=== PATIENT | female | born 1940 | race Caucasian/White ===

== ENCOUNTER → 2016-09-26 | Outpatient (CLI) | payer OTHER ==
[~2016-09-26] MED LIST: CHOL400C7 PO; COEN100C7 PO; IBUP-1277 PO; METH500T3 PO; METO25TA3 PO; MULT-506 PO; OMEG10007 PO; VITA100C2 PO; VITA100C4 PO; ZNTT/150 PO; calcium chews PO; citrucel PO
[2016-09-26 11:33] LABS: ESTIMATED AVERAGE GLUCOSE 114 mg/dl; HA1C FLAG Normal (Normal)
[2016-09-26 11:45] LABS: BLOOD UREA NITROGEN 12 mg/dl (7-18); BUN/CREATININE RATIO 13.2 (10-20); CARBON DIOXIDE 29 mmol/L (21-32); CHLORIDE 109 mmol/L (98-107); CREATININE 0.94 mg/dl (0.60-1.20); GLUCOSE 97 mg/dl (70-99); POTASSIUM 3.8 mmol/L (3.5-5.1); SODIUM 144 mmol/L (136-145)
[2016-09-26 11:48] LABS: ALB/GLOB RATIO 1.3 (0.9-2); ALKALINE PHOSPHATASE 51 U/L (45-117); ALT/SGPT 33 U/L (12-78); AST/SGOT 23 U/L (15-37); CHOLESTEROL 239 mg/dl (0-200); CHOLESTEROL/HDL RATIO 2.2; HDL CHOLESTEROL 107 mg/dl; LDL CHOLESTEROL CALCULATED 119 mg/dl; TRIGLYCERIDES 63 mg/dl (0-150); VERY LOW DENSITY LIPOPROT CALC 13 mg/dl
== END | disposition home or self-care (01) ==
LOC: C.LABBC 08:23
PROVIDERS: ATTEND Internal Medicine Cardiovascular Disease
DX: E78.5 Hyperlipidemia, unspecified (principal); M81.0 Age-related osteoporosis without current pathological fracture; I10 Essential (primary) hypertension; R73.01 Impaired fasting glucose

== ENCOUNTER → 2016-11-11 | Outpatient (CLI) | payer OTHER ==
[2016-11-11 15:25] LABS: LYME DISEASE AB IGG NEG (NEG)
[2016-11-11 15:26] LABS: LYME DISEASE AB IGM NEG (NEG)
[2016-11-14 16:46] LABS: ANAPLASMA PHAGOCYTOPHIL IGG <1:64 (<1:64); ANAPLASMA PHAGOCYTOPHIL IGM <1:20 (<1:20)
== END | disposition home or self-care (01) ==
LOC: C.LABBC 11:28
PROVIDERS: ATTEND Nurse Practitioner Adult Health
DX: M25.561 Pain in right knee (principal); M25.562 Pain in left knee

== ENCOUNTER 2017-01-25 20:45 | Emergency (ER) | payer OTHER ==
[~2017-01-25] VITALS: Ht 152.4 cm; Wt 57.7 kg
[~2017-01-25 20:45] MED LIST changes: -CHOL400C7 PO; -COEN100C7 PO; -IBUP-1277 PO; -METH500T3 PO; -MULT-506 PO; -OMEG10007 PO; -VITA100C2 PO; -ZNTT/150 PO
[2017-01-25 20:47] VITALS: TEMP 36.6; Ht 152.4 cm; Wt 57.7 kg
--- NOTE | 2017-01-25 21:03 | EMERGENCY ROOM VISIT NOTE ---
History First contact with patient: 20:51 Chief Complaint: LEG PAIN,LEG INJURY Stated Complaint: SWOLLEN RIGHT LEG-SENT FROM [employer] History of Present Illness The patient is a 76 year old female who presents to the Emergency Room for evaluation of right leg swelling. The patient states that she injured her right leg 3 months ago. She has been seeing orthopedics for a torn ligament in her knee. She wears a brace at home. She states that recently, she was walking without her brace and feels that she may have possibly reinjured the leg. She has had swelling in the leg since yesterday. She went to [facility] prior to arrival and was sent here for further evaluation. She has a dull pain in the leg which she rates a 3/10. She denies any history or family history of blood clots. She denies any recent long travel. She does not smoke. Review of Systems A complete 10 point review of systems was reviewed with the patient with pertinent positives and negatives as per history of present illness. All else were negative. Past Medical/Surgical History Medical Problems: (1) ACQRD ABSENCE OF GENITAL ORGANS (2) ASTHMA, UNSPECIFIED Social History Smoking Status: Never Smoker Alcohol Use: occasionally Marital Status: Current/Historical Medications Scheduled Cholecalciferol (Vitamin D 400 Iu), 400 INTER.UNIT PO DAILY Coenzyme Q10 (Ubidecarenone) (Coq10), Unknown Dose PO DAILY Fish Oil ([place]-3), 1 CAP PO DAILY Methylcellulose (Laxative) (Citrucel), 2 TABS PO BID Multivitamin (Multivitamin), 1 TAB PO DAILY Vitamin E (Vitamin E 100 Iu), 100 INTER.UNIT PO DAILY Scheduled PRN Ibuprofen (Advil), 200 MG PO UD PRN for Pain Physical Exam Vital Signs Date Time Temp Pulse Resp B/P (MAP) Pulse Ox O2 Delivery O2 Flow Rate FiO2 01/25/17 22:21 77 18 149/95 99 Room Air 01/25/17 20:47 36.6 79 16 169/88 97 Room Air Physical Exam VITALS: Vitals are noted on the nurse's note and reviewed by myself. Vital signs stable. GENERAL: This is a 76-year-old female, in no acute distress, nondiaphoretic, well-developed well-nourished. HEART: Regular rate and rhythm without murmurs gallops or rubs. LUNGS: Clear to auscultation bilaterally without wheezes, rales or rhonchi. EXTREMITIES: There is mild nonpitting edema to the right lower extremity in the area of the knee and lower leg. There is no erythema or palpable cord. Dorsalis pedis pulses are 2+. Normal sensation to touch over the right foot and toes. NEURO: Patient was alert and oriented to person place and time. Medical Decision & Procedures ER Provider Diagnostic Interpretation: RIGHT LOWER EXTREMITY VENOUS DOPPLER FINDINGS: The right common femoral, superficial femoral and popliteal veins were compressible. Augmentation was normal. Flow was shown within the deep calf vessels. IMPRESSION: No evidence of deep venous thrombus within the right lower extremity. Medical Decision Differential diagnosis includes DVT, superficial thrombosis, meniscal injury, ligamentous injury, cellulitis, among others. The patient was evaluated as above. There is mild swelling on exam but no erythema or palpable cord. An ultrasound was performed and showed no evidence of DVT within the lower extremity. The patient was instructed to rest and elevate the leg for swelling. She will follow up with her orthopedic provider for further evaluation. She verbalized understanding of my assessment and treatment plan and was discharged home in good condition. The patient was independently evaluated by Dr. Neely, ED attending physician, who agreed with my assessment and treatment plan. Medication Reconcilliation Current Medication List: was personally reviewed by me Blood Pressure Screening Patient's blood pressure: Elevated blood pressure Blood pressure disposition: Elevated BP felt to be situational Impression Primary Impression: Right leg swelling Departure Information Dispostion Home / Self-Care Condition GOOD Referrals No Doctor, Assigned (PCP) Patient Instructions My [facility] Additional Instructions Elevate the leg to help reduce swelling. Rest as much as possible off the leg for the next few days. Follow-up with your orthopedic provider for further evaluation of your leg swelling.
--- NOTE | 2017-01-25 22:05 | DIAGNOSTIC IMAGING REPORT ---
RIGHT LOWER EXTREMITY VENOUS DOPPLER CLINICAL HISTORY: Right leg swelling. COMPARISON STUDY: No previous studies for comparison. TECHNIQUE: Sonography of the deep venous system of the right lower extremity was performed. Compression and augmentation were evaluated. FINDINGS: The right common femoral, superficial femoral and popliteal veins were compressible. Augmentation was normal. Flow was shown within the deep calf vessels. IMPRESSION: No evidence of deep venous thrombus within the right lower extremity. Electronically signed by: Melquiades Dominguez M.D. 01/25/2017 10:04 PM Dictated Date/Time: 01/25/2017 10:04 PM
[2017-01-25 22:21] VITALS: BP 149/95; PULSE 77; O2SAT 99
--- NOTE | 2017-01-25 22:28 | EMERGENCY ROOM VISIT NOTE ---
ED Visit Note First contact with patient: 20:51 Patient was seen by our PA/MEDICAL RECORDS DIRECTOR. I was involved in the patient's care and did evaluate the patient myself. I was involved in the care throughout the ER stay. The patient does not have any evidence for DVT by ultrasound. She is being discharged with outpatient follow-up.
[2017-02-09] MEDS ORDERED: MULT-506 PO (16:51)
[2017-02-09] MEDS ORDERED: CHOL400C7 PO (16:51)
== END 2017-01-25 22:40 | disposition home or self-care (01) ==
LOC: C.EDB 20:47 → C.EDC 22:40
DX: M79.89 Other specified soft tissue disorders (principal); J45.909 Unspecified asthma, uncomplicated; Z79.899 Other long term (current) drug therapy

== ENCOUNTER 2017-02-09 20:59 | Emergency (ER) | payer OTHER ==
[~2017-02-09] VITALS: Ht 152.4 cm; Wt 58.1 kg
[~2017-02-09 20:59] MED LIST changes: +CHOL400C7 PO; -METO25TA3 PO; +MULT-506 PO; -VITA100C4 PO; -calcium chews PO; -citrucel PO
[2017-02-09 21:04] VITALS: TEMP 36.5; Ht 152.4 cm; Wt 58.1 kg
[2017-02-09] MEDS ORDERED: VITA100C2 PO (21:20)
[2017-02-09] MEDS ORDERED: OMEG10007 PO (21:20)
[2017-02-09] MEDS ORDERED: COEN100C7 PO (21:20)
[2017-02-09] MEDS ORDERED: METH500T3 PO (21:20)
[2017-02-09] MEDS ORDERED: IBUP-1277 PO (21:20)
[2017-02-09] MEDS ORDERED: ZNTT/150 PO (21:37)
--- NOTE | 2017-02-09 22:29 | DIAGNOSTIC IMAGING REPORT ---
HEAD CT NONCONTRAST CT DOSE: HISTORY: Desk fell onto head, headache, photophobia TECHNIQUE: Multiaxial CT images of the head were performed without the use of intravenous contrast. Automated exposure control was utilized for this study. A dose lowering technique was utilized adhering to the principles of ALARA. Comparison: Head CT 01/19/2013. Findings: The paranasal sinuses and mastoid air cells are clear. The calvarium and skull base are intact. There is no mass, hematoma, midline shift, acute infarct. White matter hypodensity is nonspecific but suggestive of microvascular ischemic change. The ventricles and sulci demonstrate mild age-related involutional changes. Impression: No acute intracranial abnormality. Atrophy and microvascular ischemic changes. Electronically signed by: Prasad Jamil M.D. 02/09/2017 10:28 PM Dictated Date/Time: 02/09/2017 10:24 PM
--- NOTE | 2017-02-09 22:33 | EMERGENCY ROOM VISIT NOTE ---
History First contact with patient: 21:10 Chief Complaint: HEAD INJURY (MINOR) Stated Complaint: POSSIBLE CONCUSSION,DIZZY,WEAK History of Present Illness The patient is a 76 year old female who presents to the Emergency Room via private vehicle accompanied by male with complaints of "possible concussion, dizzy, weak". The patient states that she has a history of concussions, and unfortunately today while at home around 7:30 PM she was trying to set a card table up against a desk. She states that the leg gave out, and struck her on the head. She states that since then she has had light sensitivity, and a diffuse headache. She also notes a bump on the top of the head. She feels shaken up. She denies any of these symptoms prior to the injury. She states that she had a concussion approximately 3 years ago of which she notes was quite severe. She denies any anticoagulant use. She tried ibuprofen prior to coming. Review of Systems A complete 6-point Review of Systems was discussed with the patient, with pertinent positives and negatives listed in the History of Present Illness. All remaining Review of Systems questions can be considered negative unless otherwise specified. Past Medical/Surgical History Medical Problems: (1) ACQRD ABSENCE OF GENITAL ORGANS (2) ASTHMA, UNSPECIFIED Family History No pertinent. Social History Smoking Status: Never Smoker Alcohol Use: occasionally Marital Status: Patient lives locally. Current/Historical Medications Scheduled Cholecalciferol (Vitamin D 400 Iu), 400 INTER.UNIT PO DAILY Coenzyme Q10 (Ubidecarenone) (Coq10), Unknown Dose PO DAILY Fish Oil ([place]-3), 1 CAP PO Q2D Methylcellulose (Laxative) (Citrucel), 2 TABS PO BID Multivitamin (Multivitamin), 1 TAB PO DAILY Ranitidine (Zantac), 150 MG PO DAILY Vitamin E (Vitamin E 100 Iu), 100 INTER.UNIT PO DAILY Scheduled PRN Ibuprofen (Advil), 200-400 MG PO UD PRN for Pain Physical Exam Vital Signs Date Time Temp Pulse Resp B/P (MAP) Pulse Ox O2 Delivery O2 Flow Rate FiO2 02/09/17 22:59 72 18 166/89 97 Room Air 02/09/17 21:04 36.5 81 16 178/94 96 Room Air Physical Exam VITAL SIGNS - Vital signs and nursing notes were reviewed. Stable. Hypertensive. GENERAL -76-year-old female appearing her stated age who is in no acute distress. Communicates well with provider and answers questions appropriately. SKIN - Without rashes. Small bump on the top of the head. No extravasation of blood noted. HEAD - NC/AT. No portillo signs or raccoons eyes. EYES - PERRL with EOMI bilaterally. Sclera anicteric. No hyphema. EARS - No deformities of external structures noted on gross examination bilaterally. No pain elicited with palpation of the tragus bilaterally. External auditory canals without discharge or otorrhea. Tympanic membranes pearly dover without retraction or bulging. No fluid or purulent material visualized behind the TM. Handle of malleus, umbo, cone of light, pars tensa/ flaccid all easily visualized. No hemotympanum. NOSE - Midline and without cyanosis. No epistaxis or purulent drainage noted. Septum midline without deviation or septal hematoma noted. MOUTH/OROPHARYNX - Without perioral cyanosis. Buccal mucosa pink and moist and without leukoplakia. Tongue midline with equal elevation of palate bilaterally. No tonsillar hypertrophy, erythema, or exudates noted. Fair dentition noted. NECK - Neck with FROM. Supple to palpation. No C-spine tenderness. LUNGS - Chest wall symmetric without accessory muscle use, intercostals retractions, or central cyanosis. Normal vesicular breath sounds CTA B/L. No wheezes, rales, or rhonchi appreciated. CARDIAC - RRR with S1/S2. No murmur, rubs, or gallops appreciated. EXTREMITIES - No clubbing or peripheral cyanosis. No pretibial edema present. She is neurovascularly intact in the extremities. +5/5 strength noted in UE/LE bilaterally. NEUROLOGIC - Cranial nerves II through XII grossly intact. Sensory intact to light touch throughout. Patellar reflexes +2/4. PSYCH - A&Ox3 and cooperates fully with examiner. Pt is very pleasant and interacts well with examiner. Medical Decision & Procedures ER Provider Diagnostic Interpretation: HEAD CT NONCONTRAST CT DOSE: HISTORY: Desk fell onto head, headache, photophobia TECHNIQUE: Multiaxial CT images of the head were performed without the use of intravenous contrast. Automated exposure control was utilized for this study. A dose lowering technique was utilized adhering to the principles of ALARA. Comparison: Head CT 01/19/2013. Findings: The paranasal sinuses and mastoid air cells are clear. The calvarium and skull base are intact. There is no mass, hematoma, midline shift, acute infarct. White matter hypodensity is nonspecific but suggestive of microvascular ischemic change. The ventricles and sulci demonstrate mild age-related involutional changes. Impression: No acute intracranial abnormality. Atrophy and microvascular ischemic changes. Electronically signed by: Prasad Jamil M.D. 02/09/2017 10:28 PM Dictated Date/Time: 02/09/2017 10:[address] DOSE: 891.78 mGy.cm HISTORY: Trauma. Neck pain. Desk fell onto head, headache, photophobia TECHNIQUE: Multiaxial CT images of the cervical spine were performed and reformatted in the sagittal and coronal plane without the use of contrast. A dose lowering technique was utilized adhering to the principles of ALARA. COMPARISON: None. FINDINGS: No fractures within the cervical spine. 1 mm of anterolisthesis of C4 on C5. This may be due to long-standing degenerative change. Mild disc space narrowing at C3-C4, C5-C6, and C6-C7. Prevertebral soft tissues and the C1-C2 interval are intact. No pneumothorax. Small subpleural nodular density within the right lung apex favor scarring. This measures 6 mm. IMPRESSION: No fractures within the cervical spine. Electronically signed by: Prasad Jamil M.D. 02/09/2017 10:32 PM Dictated Date/Time: 02/09/2017 10:28 PM Medical Decision Patient was seen and evaluated as above. After obtaining a thorough history and physical examination benefit versus risk was discussed with the patient regarding CT of the head and neck. Decision was made to obtain imaging of these regions. Results as above. No acute fracture. It still findings discussed with the patient. She is to follow-up. Copies of these were provided in her discharge paperwork. I suspect she is likely experiencing a concussion. The absence of any acute intracranial bleeding, injury or C-spine fracture believe she is stable for outpatient management. She was also seen by the attending physician. Please refer to his documentation as well. Patient was educated upon worrisome symptoms which to return, had questions answered prior to discharge, and was discharged home in good condition. In the evaluation and treatment of this patient, the following differential diagnoses were considered: Concussion, Contrecoup Injury, Brain Tumor, Depression, Encephalitis, Hypothyroidism, Meningitis, CVA, TIA, Migraine, Cluster Headache, Intracranial Abnormality, Intracranial Hemorrhage, Subdural Hematoma, Subarachnoid Hemorrhage, Hydrocephalus, Musculoskeletal Strain, Discitis, Cervical Spine Fracture, Cervical Spine Dislocation, Cervical Spine Subluxation, Cervical Spondylosis, Fibromyalgia, Osteoarthritis, Polymyalgia Rheumatica, Psychogenic Pain Disorder, Tumor of Soft Tissue or Spine. Medication Reconcilliation Current Medication List: was personally reviewed by me Blood Pressure Screening Patient's blood pressure: Elevated blood pressure Blood pressure disposition: Elevated BP felt to be situational, Referred to PCP Impression Primary Impression: Closed head injury Additional Impression: Concussion Departure Information Dispostion Home / Self-Care Condition GOOD Referrals Lucas Sandoval III, CRNP (PCP) Patient Instructions My [facility] Additional Instructions You have been treated in the Emergency Department for a Closed Head Injury. CT Scan of your head/brain/neck demonstrated no acute bleeding or other emergent abnormalities. This does not completely rule out the risk for future damage to the brain.. For pain control, you can use the following [id number] medicines (if >12 yo): - Regular strength (325mg/tab) Tylenol (acetaminophen) 2 tabs every 4-6 hours as needed. Do not exceed 12 tablets in a 24 hour period. Avoid taking more than 3 grams (3000 mg) of Tylenol per day. This includes any other sources of acetaminophen you may take on a regular basis. You should relax in a quiet, dark place for the rest of the day. Avoid any possible triggers including: cigarette smoke, caffeine, nicotine, chocolate, wine, beer, loud noises or music, or bright lights. You should schedule a follow-up appointment in 2-3 days with your Primary Care Provider or established Neurologist for further evaluation and treatment of your Headache. Return to the Emergency Department if your current symptoms worsen despite treatment course outlined above, or if you develop any of the following symptoms : intractable pain despite aforementioned treatment course, visual disturbances , loss of vision, unilateral weakness or facial drooping, slurring of speech, loss of coordination, or loss of consciousness. HEAD CT NONCONTRAST CT DOSE: HISTORY: Desk fell onto head, headache, photophobia TECHNIQUE: Multiaxial CT images of the head were performed without the use of intravenous contrast. Automated exposure control was utilized for this study. A dose lowering technique was utilized adhering to the principles of ALARA. Comparison: Head CT 01/19/2013. Findings: The paranasal sinuses and mastoid air cells are clear. The calvarium and skull base are intact. There is no mass, hematoma, midline shift, acute infarct. White matter hypodensity is nonspecific but suggestive of microvascular ischemic change. The ventricles and sulci demonstrate mild age-related involutional changes. Impression: No acute intracranial abnormality. Atrophy and microvascular ischemic changes. [~ rep ct add3]] CERVICAL SPINE CT CT DOSE: 891.78 mGy.cm HISTORY: Trauma. Neck pain. Desk fell onto head, headache, photophobia TECHNIQUE: Multiaxial CT images of the cervical spine were performed and reformatted in the sagittal and coronal plane without the use of contrast. A dose lowering technique was utilized adhering to the principles of ALARA. COMPARISON: None. FINDINGS: No fractures within the cervical spine. 1 mm of anterolisthesis of C4 on C5. This may be due to long-standing degenerative change. Mild disc space narrowing at C3-C4, C5-C6, and C6-C7. Prevertebral soft tissues and the C1-C2 interval are intact. No pneumothorax. Small subpleural nodular density within the right lung apex favor scarring. This measures 6 mm. IMPRESSION: No fractures within the cervical spine. Problem Qualifiers
[2017-02-09 22:59] VITALS: BP 166/89; PULSE 72; O2SAT 97
--- NOTE | 2017-02-09 23:18 | EMERGENCY ROOM VISIT NOTE ---
ED Visit Note First contact with patient: 21:10 HPI: Minor HS. neuro intact. PE: AFVSS, NAD NC/AT RRR, no murmurs CTAB Abd soft NT/ND Ext: no edema, erythema Neuro: grossly intact Plan: CT head/cspine negative. pcp f/u. I reviewed the patient's past medical history, medications, and visit nursing notes. I discussed the case with the physician internal medicine physician assistant, examined the patient, and agree with the findings and plan as documented in the physician assistants note.
== END 2017-02-09 23:00 | disposition home or self-care (01) ==
LOC: C.EDB 21:01 → C.EDD 23:00
DX: S06.0X0A Concussion without loss of consciousness, initial encounter (principal); W22.8XXA Striking against or struck by other objects, initial encounter; Y92.019 Unspecified place in single-family (private) house as the place of occurrence of the external cause; J45.909 Unspecified asthma, uncomplicated; Z79.899 Other long term (current) drug therapy

== ENCOUNTER → 2017-08-20 | Outpatient (CLI) | payer OTHER ==
[~2017-08-20] MED LIST changes: +COEN100C7 PO; +IBUP-1277 PO; +METH500T3 PO; +OMEG10007 PO; +RANI150T85 PO; +VITA100C2 PO
== END | disposition home or self-care (01) ==
LOC: C.RDSM 14:16
PROVIDERS: ATTEND Orthopaedic Surgery
DX: M79.604 Pain in right leg (principal)